=== PATIENT | female | born 1950 | race Caucasian/White ===

== ENCOUNTER 2017-02-16 12:29 | Emergency (ER) | payer MEDICARE ==
[2017-02-16 13:13] LABS: HEMOGLOBIN 14.8 gm/dl (12.3-15.3); RED BLOOD COUNT 4.53 M/UL (4.00-5.10); WHITE BLOOD COUNT 9.5 K/UL (4.5-11.0)
== END 2017-02-16 17:48 | disposition home or self-care (01) ==
LOC: ER1 12:29
PROVIDERS: Emergency Medicine
DX: R07.89 Other chest pain (principal); E78.5 Hyperlipidemia, unspecified; I10 Essential (primary) hypertension; F17.200 Nicotine dependence, unspecified, uncomplicated; Z88.0 Allergy status to penicillin; Z88.2 Allergy status to sulfonamides; Z98.51 Tubal ligation status
CPT/HCPCS: 36415; 71020; 80053; 82550; 82553; 83874; 84484; 85025; 85379; 93005; 99285; J7050; Q9963

== ENCOUNTER 2021-04-08 21:41 | Emergency (ER) | payer MEDICARE ==
[2021-04-08 22:59] LABS: HEMOGLOBIN 11.7 gm/dl (12.3-15.3); RED BLOOD COUNT 3.36 M/UL (4.00-5.10); WHITE BLOOD COUNT 8.8 K/UL (4.5-11.0)
[2021-04-08 23:22] LABS: BUN/CREATININE RATIO 13 (0-10)
[2021-04-09] MEDS ORDERED: OMNICEF 300 MG300 MG PO (01:34)
== END 2021-04-09 03:30 | disposition home or self-care (01) ==
LOC: ER1 21:41
PROVIDERS: Physician Assistant
DX: R55 Syncope and collapse (principal); R06.4 Hyperventilation; N39.0 Urinary tract infection, site not specified; N18.9 Chronic kidney disease, unspecified; Z88.0 Allergy status to penicillin; Z88.8 Allergy status to other drugs, medicaments and biological substances; F17.210 Nicotine dependence, cigarettes, uncomplicated
CPT/HCPCS: 70450; 71045; 72125; 80053; 81001; 82550; 82553; 83874; 84484; 85025; 87077; 87086; 87186; 96374; 96375; 99285; J0360; J0696

== ENCOUNTER → 2021-05-02 | Outpatient (CLI) | payer MEDICARE ==
[~2021-05-02] MED LIST: OMNICEF 300 MG300 MG PO
== END ==
LOC: KOH-I 09:46
DX: Z12.2 Encounter for screening for malignant neoplasm of respiratory organs (principal); R91.1 Solitary pulmonary nodule; F17.210 Nicotine dependence, cigarettes, uncomplicated
CPT/HCPCS: 71271

== ENCOUNTER → 2021-05-27 | Outpatient (CLI) | payer MEDICARE | LOC: EXRD 13:07 | DX: R55 Syncope and collapse (principal); R22.2 Localized swelling, mass and lump, trunk; E04.1 Nontoxic single thyroid nodule; I65.22 Occlusion and stenosis of left carotid artery | CPT/HCPCS: 76536; 93880 ==

== ENCOUNTER → 2021-05-28 | Outpatient (CLI) | payer MEDICARE | LOC: US 05-20 14:00 | DX: Z12.31 Encounter for screening mammogram for malignant neoplasm of breast (principal) | CPT/HCPCS: 76641-LT; 76641-RT ==

== ENCOUNTER → 2021-06-04 | Outpatient (CLI) | payer MEDICARE | LOC: EXRD 14:42 | DX: E04.1 Nontoxic single thyroid nodule (principal) | CPT/HCPCS: 76536 ==

== ENCOUNTER → 2021-06-24 | Outpatient (CLI) | payer MEDICARE | LOC: LAB 13:45 | PROVIDERS: Internal Medicine Nephrology | DX: N18.32 Chronic kidney disease, stage 3b (principal) | CPT/HCPCS: 36415; 80048; 81001; 82043; 82570; 84156; U0003 ==

== ENCOUNTER → 2021-07-03 | Outpatient (CLI) | payer MEDICARE | LOC: HEART 5 07:35 | DX: R55 Syncope and collapse (principal); I08.3 Combined rheumatic disorders of mitral, aortic and tricuspid valves; R94.39 Abnormal result of other cardiovascular function study | CPT/HCPCS: 93306 ==

== ENCOUNTER → 2021-08-05 | Outpatient (CLI) | payer MEDICARE | LOC: HEART 5 09:12 | DX: R06.02 Shortness of breath (principal) | CPT/HCPCS: 94010; 94729 ==

== ENCOUNTER → 2021-10-18 | Outpatient (CLI) | payer MEDICARE ==
[~2021-10-18] MED LIST changes: +BREO ELLIPTA 11 EACH INH; +BUPROPION HCL150 M1 PO; +CALCIUM PO; +CARBIDOPA-LEVO1 EA14 PO; +CHILDREN'S ASPI81 MG PO; +COLACE100 MG PO; +CYCLOBENZAPRINE10 MG PO; +DOCUSATE SODIU250 MG PO; +HYDROCODONE-AC1 EAC1 PO; +HYDROCODONE-AC1 EACH PO; +IBUPROFEN600 MG PO; +LIPITOR TAB 2020 MG PO; +LORATADINE10 MG PO; +METOPROLOL TARTRATE PO; +OMEPRAZOLE40 MG PO; +ONE DAILY FOR1 EAC3 PO; +PROAIR DIGIHAL90 MCG INH; +SPIRONOLACTONE25 MG PO; +VITAMIN B12 SL; +VITAMIN D325 MCG PO; +VITAMIN E100 UNIT PO
[2021-10-18 11:44] LABS: HEMOGLOBIN 12.6 gm/dl (12.3-15.3); RED BLOOD COUNT 3.75 M/UL (4.00-5.10); WHITE BLOOD COUNT 7.6 K/UL (4.5-11.0)
== END ==
LOC: OPSV2 10:00
PROVIDERS: Obstetrics & Gynecology
DX: Z01.818 Encounter for other preprocedural examination (principal); Z88.0 Allergy status to penicillin; Z88.2 Allergy status to sulfonamides; Z88.1 Allergy status to other antibiotic agents
CPT/HCPCS: 71046; 80053; 85025; 93005

== ENCOUNTER → 2021-10-28 | Day surgery (SDC) | payer MEDICARE | END | disposition home or self-care (01) | LOC: OR 06:05 | DX: R87.613 High grade squamous intraepithelial lesion on cytologic smear of cervix (HGSIL) (principal); D25.9 Leiomyoma of uterus, unspecified; N80.0 Endometriosis of uterus; N84.0 Polyp of corpus uteri; N83.202 Unspecified ovarian cyst, left side; N83.201 Unspecified ovarian cyst, right side; I12.9 Hypertensive chronic kidney disease with stage 1 through stage 4 chronic kidney disease, or unspecified chronic kidney disease; N18.30 Chronic kidney disease, stage 3 unspecified; E78.2 Mixed hyperlipidemia; G20 Parkinson's disease; F33.1 Major depressive disorder, recurrent, moderate; F41.1 Generalized anxiety disorder; F17.210 Nicotine dependence, cigarettes, uncomplicated; Z88.2 Allergy status to sulfonamides; Z88.0 Allergy status to penicillin; Z79.82 Long term (current) use of aspirin; Z79.899 Other long term (current) drug therapy; Z20.822 Contact with and (suspected) exposure to COVID-19 | CPT/HCPCS: 81001; 93005; C1769; J1100; J1580; J2001; J2405; J2704; J2710; J3010; J7030; J7120 ==

== ENCOUNTER → 2021-11-26 | Outpatient (CLI) | payer MEDICARE | LOC: HEART 5 08:44 | DX: I20.9 Angina pectoris, unspecified (principal) | CPT/HCPCS: 78452; A9502; J2785 ==

== ENCOUNTER → 2021-12-31 | Outpatient (CLI) | payer MEDICARE | LOC: KOH-I 09:34 | DX: M96.1 Postlaminectomy syndrome, not elsewhere classified (principal); M43.16 Spondylolisthesis, lumbar region; M43.17 Spondylolisthesis, lumbosacral region; Z98.890 Other specified postprocedural states; M48.061 Spinal stenosis, lumbar region without neurogenic claudication | CPT/HCPCS: 72131 ==

== ENCOUNTER → 2022-01-22 | Outpatient (CLI) | payer MEDICARE ==
[2022-01-23 10:17] LABS: CREATININE, URINE 56.2 mg/dL (Not Estab.)
== END ==
LOC: LAB 10:09
PROVIDERS: Internal Medicine Nephrology
DX: N18.32 Chronic kidney disease, stage 3b (principal)
CPT/HCPCS: 80048; 82043; 82570

== ENCOUNTER → 2022-02-27 | Outpatient (CLI) | payer MEDICARE | LOC: RAD 11:35 | DX: M17.0 Bilateral primary osteoarthritis of knee (principal) | CPT/HCPCS: 73564 ==